=== PATIENT | female | born 1965 | race Caucasian/White ===

== ENCOUNTER → 2018-05-02 | Outpatient (CLI) | payer BC ==
[2012-02-12 19:16] VITALS: BP 120/74
[~2018-05-02] MED LIST: NO HOME MEDICATIONS
== END ==
LOC: MAMMO 11:20
DX: Z12.31 Encounter for screening mammogram for malignant neoplasm of breast (principal); R92.1 Mammographic calcification found on diagnostic imaging of breast

== ENCOUNTER → 2018-05-09 | Outpatient (CLI) | payer BC ==
[2012-02-12 19:16] VITALS: BP 120/74
[2018-05-09 10:49] LABS: EOS # 0.2 (0.04-0.40); EOS % 2.4 % (1.0-5.0); HEMATOCRIT 41.7 % (37.0-47.0); HEMOGLOBIN 13.4 g/dL (12.5-16.0); LYMPH# 2.2 (1.50-4.00); MEAN CELL VOLUME 84 fl (78-100); MEAN CORPUSCULAR HEMOGLOBIN 27 pg (27-31); MEAN CORPUSCULAR HGB CONC 32 g/dL (33-37); MEAN PLATELET VOLUME 9.3 fl (7.4-10.4); MONO # 0.7 (0.20-0.80); NEU # 4.9 (1.40-6.50); PLATELET COUNT 384 K/mm3 (130-400); RED BLOOD COUNT 4.96 M/mm3 (4.10-5.30); RED CELL DISTRIBUTION WIDTH 13.5 % (11.5-14.5); WHITE BLOOD COUNT 8.1 K/mm3 (4.8-10.8)
[2018-05-09 11:02] LABS: ALBUMIN 4.4 g/dL (3.5-5.0); BUN/CREATININE RATIO 18.8 (6.0-26.0); CALCIUM 8.8 mg/dL (8.4-10.2); POTASSIUM 4.1 mmol/L (3.6-5.0); TOTAL BILIRUBIN 0.4 mg/dL (0.2-1.3); TOTAL PROTEIN 8.4 g/dL (6.3-8.2)
== END ==
LOC: LAB 10:17
PROVIDERS: Dermatology
DX: L65.8 Other specified nonscarring hair loss (principal)

== ENCOUNTER → 2018-05-14 | Outpatient (CLI) | payer BC ==
[2012-02-12 19:16] VITALS: BP 120/74
== END ==
LOC: MAMMO 07:48
DX: R92.1 Mammographic calcification found on diagnostic imaging of breast (principal)

== ENCOUNTER → 2018-05-23 | Outpatient (CLI) | payer BC ==
[2012-02-12 19:16] VITALS: BP 120/74
[2018-05-23 13:34] LABS: URINE APPEARANCE CLEAR; URINE BILIRUBIN NEGATIVE (NEGATIVE); URINE BLOOD NEGATIVE (NEGATIVE); URINE COLOR YELLOW; URINE GLUCOSE NEGATIVE (NEGATIVE); URINE KETONE NEGATIVE (NEGATIVE); URINE LEUKOCYTE ESTERASE NEGATIVE (NEGATIVE); URINE NITRATE NEGATIVE (NEGATIVE); URINE PROTEIN(semi-quant) NEGATIVE (NEGATIVE); URINE UROBILINOGEN NORMAL (NORMAL)
[2018-05-24 02:22] LABS: COMPLEMENT C3 180 mg/dL (79-152); COMPLEMENT-C4 28 mg/dL (18-55)
== END ==
LOC: LAB 12:44
PROVIDERS: Dermatology
DX: L65.8 Other specified nonscarring hair loss (principal)

== ENCOUNTER → 2018-05-24 | Outpatient (CLI) | payer BC ==
[2012-02-12 19:16] VITALS: BP 120/74
== END ==
LOC: LAB 15:33
DX: L65.8 Other specified nonscarring hair loss (principal)

== ENCOUNTER → 2018-12-31 | Outpatient (CLI) | payer BC ==
[2012-02-12 19:16] VITALS: BP 120/74
== END ==
LOC: MAMMO 07:17
DX: R92.2 Inconclusive mammogram (principal); Z98.82 Breast implant status

== ENCOUNTER → 2019-10-08 | Outpatient (CLI) | payer BC ==
[2012-02-12 19:16] VITALS: BP 120/74
== END ==
LOC: MAMMO 08:28
DX: Z12.31 Encounter for screening mammogram for malignant neoplasm of breast (principal)

== ENCOUNTER → 2021-01-08 | Outpatient (CLI) | payer BC ==
[2012-02-12 19:16] VITALS: BP 120/74
== END ==
LOC: MAMMO 12:55
DX: Z12.31 Encounter for screening mammogram for malignant neoplasm of breast (principal)

== ENCOUNTER → 2022-07-12 | Outpatient (CLI) | payer BC | LOC: MAMMO 14:30 | DX: Z12.31 Encounter for screening mammogram for malignant neoplasm of breast (principal) ==

== ENCOUNTER → 2024-05-02 | Outpatient (CLI) | payer BC | LOC: MAMMO 09:30 | DX: Z12.31 Encounter for screening mammogram for malignant neoplasm of breast (principal); N64.89 Other specified disorders of breast ==

== ENCOUNTER → 2024-05-07 | Outpatient (CLI) | payer BC | LOC: MAMMO 08:30 | DX: N63.25 Unspecified lump in the left breast, overlapping quadrants (principal) ==